=== PATIENT | male | born 1980 | race Caucasian/White ===

== ENCOUNTER 2016-08-05 14:03 | Emergency (ER) | payer MEDICARE, MEDICAID ==
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
[2016-08-05 15:34] LABS: % BASOPHILS 0.9 % (0.0-2.0); % EOSINOPHILS 2.1 % (0.0-5.0); % LYMPHOCYTES 29.5 % (20.0-50.0); % MONOCYTES 5.5 % (2.0-10.0); HEMATOCRIT 45.6 % (39.0-49.0); HEMOGLOBIN 15.5 gm/dL (13.2-17.3); MEAN CELL VOLUME 90.9 fl (80-99); MEAN CORPUSCULAR HEMOGLOBIN 30.9 pg (26.0-30.0); MEAN PLATELET VOLUME 8.4 fl; NEUTROPHILE ABSOLUTE 4.7 Th/cmm (1.8-8.0); PLATELET COUNT 190 Th/cmm (150-400); RED BLOOD COUNT 5.01 Mil/cmm (4.30-5.70); RED CELL DISTRIBUTION WIDTH 13.7 % (11.5-20.0); WHITE BLOOD COUNT 7.7 Th/cmm (4.8-10.8)
[2016-08-05 15:51] LABS: ANION GAP 1.1 (7.0-16.0); BUN - UREA NITROGEN 6 mg/dL (7-25); BUN/CREATININE RATIO 6.7; CALCIUM SERUM 8.9 mg/dL (8.6-10.3); CHLORIDE 107 mEq/L (98-107); CREATININE - SERUM 0.9 mg/dL (0.7-1.3); GLUCOSE 99 mg/dL (70-105); POTASSIUM SERUM 4.1 mEq/L (3.5-5.1); SODIUM SERUM 135 mEq/L (136-145)
--- NOTE | 2016-08-06 10:07 | Diagnostic Imaging Report ---
Portable chest x-ray History: Shortness of breath Allowing for portable technique the heart size is normal. No focal pulmonary parenchymal processes. No hilar or mediastinal abnormalities. Impression: No acute abnormalities.
== END 2016-08-05 16:45 | disposition home or self-care (01) ==
LOC: ER 14:03
DX: R06.00 Dyspnea, unspecified (principal); F17.210 Nicotine dependence, cigarettes, uncomplicated
CPT/HCPCS: 36415-UA; 71010-TC; 80048-TC; 83880-TC; 84484-TC; 85025-TC; 85379-TC; 93005

== ENCOUNTER 2016-11-16 19:43 | Emergency (ER) | payer MEDICARE, MEDICAID | END 2016-11-16 21:30 | disposition left against medical advice (07) | LOC: ER 19:43 | DX: J02.9 Acute pharyngitis, unspecified (principal) ==

== ENCOUNTER 2018-05-06 11:56 | Emergency (ER) | payer MEDICAID, MEDICARE ==
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
== END 2018-05-06 12:55 | disposition home or self-care (01) ==
LOC: ER 11:56
DX: M79.602 Pain in left arm (principal)
CPT/HCPCS: Z7502